=== PATIENT | female | born 1960 | race Caucasian/White ===

== ENCOUNTER → 2024-09-02 09:01 | Outpatient (REF) | payer MEDICARE, SELFPAY | LOC: HWRAD 09:01 | PROVIDERS: ATTENDING PHYSICIAN Family Medicine | DX: M81.0 Age-related osteoporosis without current pathological fracture (principal) | CPT/HCPCS: 77080 ==

== ENCOUNTER → 2024-09-08 11:58 | Outpatient (REF) | payer MEDICARE, SELFPAY | LOC: MRI 3T 11:58 | PROVIDERS: ATTENDING PHYSICIAN Family Medicine | DX: G44.1 Vascular headache, not elsewhere classified (principal); R42 Dizziness and giddiness | CPT/HCPCS: 70551 ==

== ENCOUNTER → 2025-04-28 12:43 | Outpatient (REF) | payer MEDICARE, SELFPAY | LOC: HWRAD 12:43 | PROVIDERS: ATTENDING PHYSICIAN Family Medicine | DX: R07.89 Other chest pain (principal) | CPT/HCPCS: 71101 ==